=== PATIENT | male | born 1970 | race African-American/Black ===

== ENCOUNTER → 2017-04-29 | Outpatient (CLI) | payer OTHER ==
[~2017-04-29] MED LIST: NOHOMEMEDICATIONS; PROMETHAZINE-C120 ML PO
== END ==
LOC: CAT 17:24 → RAD 17:24
DX: R51 Headache (principal)

== ENCOUNTER → 2017-10-03 | Outpatient (CLI) | payer OTHER | LOC: RAD 12:47 | DX: J45.41 Moderate persistent asthma with (acute) exacerbation (principal) ==

== ENCOUNTER → 2018-11-20 | Outpatient (CLI) | payer OTHER | LOC: CAT 11:49 | DX: R51 Headache (principal) ==

== ENCOUNTER → 2020-08-21 | Outpatient (CLI) | payer OTHER | LOC: CAT 12:58 | PROVIDERS: ATTEND Neuromusculoskeletal Medicine & OMM | DX: R31.9 Hematuria, unspecified (principal) ==